=== PATIENT | female | born 1980 | race Caucasian/White ===

== ENCOUNTER 2025-01-29 21:19 | Emergency (ER) | payer SELFPAY ==
[2025-01-29 21:20] VITALS: PULSE 82; RESP 18; TEMP 36.1; O2SAT 98; BMI 27.7
--- NOTE | 2025-01-29 22:14 | EKG12_ITS ---
Test Reason : MENTAL HEALTH Blood Pressure : */* mmHG Vent. Rate : 74 BPM Atrial Rate : 74 BPM P-R Int : 118 ms QRS Dur : 76 ms QT Int : 402 ms P-R-T Axes : 67 18 31 degrees QTcB Int : 446 ms Normal sinus rhythm with sinus arrhythmia Normal ECG No previous ECGs available Confirmed by CRESCENCIO DARDEN, MERRILL ([id number]), assistant editor MICHELLE HAIR ([id number]) on 01/31/2025 9:30:55 AM Referred By: Confirmed By: MERRILL PRATHER MD
--- NOTE | 2025-01-29 22:15 | EX.ED.VIS.PS ---
HPI HPI - Psych History of Present Illness Chief Complaint: Mental Health Informant: patient and family Narrative Narrative: Patient is a 44-year-old female with history of heavy alcohol use, prior psychiatric admission (daughter Thinks she has a diagnosis of schizoaffective disorder) presenting for erratic behavior. Patient was in [place] but apparently drove down to her [facility] and [facility] today which is very unusual for her. She has had spiraling thoughts throughout the day and has been making much sense. She has had intermittent paranoia. She is not been sleeping. Patient also stopped drinking and smoking cold turkey on Tuesday, 2 days ago. Daughter is quite concerned about her and brought her in for further evaluation. Patient denies any HI or SI. She denies any injuries or physical complaints. She asked if she is going to today or if she is ever going home. She has a hard time answering a lot of questions and staying on track when I speak with her. PFSH PFSH Medical History unable to obtain Home Medications ?Medication ?Instructions ?Recorded ?Last Taken ?Type lorazepam 0.5 mg tablet (Ativan) 0.5 mg PO QHS PRN anxiety #5 tabs 01/29/25 Unknown Rx Allergy/AdvReac Type Severity Reaction Status Date / Time No Known Allergies Allergy Verified 01/29/25 21:20 Social History Smoking Status: Never smoker ROS ROS ED Constitutional Constitutional ED: Denies chills or fever(s) Eyes Eyes: Denies blurry vision Cardiovascular Cardiovascular: Denies chest pain Respiratory/Chest Respiratory/Chest: Denies dyspnea Gastrointestinal Gastrointestinal: Denies nausea or vomiting Neurologic Neurologic: Denies headache(s) Psychiatric Psychiatric: Reports anxiety and other Details: Difficulty sleeping, trouble concentrating ; Denies suicidal ideation or suicidal thoughts EXAM Physical Exam Const Vital Signs: 01/29/25 21:20 01/29/25 22:19 Temperature 96.9 F L Temperature Source Temporal Pulse Rate 82 Respiratory Rate 18 Blood Pressure 157/79 H Blood Pressure Mean 105 Pulse Ox 98 Oxygen Delivery Method Room Air Positive well nourished and well developed General Appearance ED: well developed HEENT HEENT Narrative: Mildly dry mucosal membranes Eyes PERRL and EOMs intact bilaterally Neck supple Resp normal respiratory effort and clear to auscultation bilaterally Cardio Rate: regular rate Rhythm: regular rhythm GI non-tender and non-distended Extremity normal to inspection Neuro CN's II-XII intact bilaterally Neuro Narrative: Moving all extremities. No focal deficits appreciated. No tremor. Sensorium / Orientation: alert, oriented to person and oriented to place Motor Exam: muscle tone normal throughout Psych Psych Narrative: Patient seems internally stimulated Appearance: grossly normal Attitude: bizarre Activity / Motor Behavior: appropriate eye contact Speech: rapid and pressured Mood & Affect: anxious Thought Process: illogical Thought Content: No suicidality, No homicidality and No hallucination(s) Attention / Concentration: attention grossly impaired and concentration grossly impaired Memory / Cognition: memory grossly intact and cognition grossly intact Insight: poor Judgement: poor Skin Rashes: no rashes MDM MDM MDM Narrative Medical decision making narrative: Patient evaluated for increased agitation, anxiety and paranoia. Patient appears to be acutely manic internally stimulated. I do not think she has capacity to take care of herself or make medical decisions at this time. Will place a pink slip. Differential includes DTs, acute psychosis, electrolyte derangement and encephalopathy. Will obtain medical clearance. Patient is not currently tachycardic. Will check a blood pressure. Is given IV Ativan for hyperactive features. Patient valuated by the counseling center. He spoke with the patient and family (her daughter). At this time she is not an imminent threat to herself or others. Has no HI or SI. They feel comfortable safety plan. I spoke with the patient again. Discussed that I could admit her for acute alcohol detox. Is not clear if her symptoms could be associated DTs. However patient does not have tremor, tachycardia or significant hypertension more consistent with alcohol withdrawal. She states she only drinks a bottle of wine a day. She has actually seem a bit more lucid at this time. She seems to be demonstrating capacity at this time. Will resend the pink slip. Patient is encouraged to return the emergency room should she have any worsening psychiatric symptoms. Patient and family counseled that if she has progression or worsening symptoms she needs to return to the emergency room. Counseled on signs of DTs such as seizures and sweating. They verbalized agreement understands plan. Patient discharged home in stable condition Spoke with patient with her siblings. Patient does seem more insightful. She was recalling things and answering questions appropriately. Seems less internally stimulated. This is more of an acute mental break associated with her recent stressors of breaking up with a long-term significant other and stopping drinking. Again encouraged to return to the emergency room should things progress. Family feels very comfortable with this plan. In addition she will be going back to her house in [facility]. Will send a prescription for a short course of Ativan to help with sleep. Daughter states that she feels comfortable administering the medication. Counseled on the risk of abuse with this. Lab Data Attestation: I reviewed the patient's lab results. Labs: Laboratory Results - last 24 hr 01/29/25 22:35 WBC 10.1 RBC 4.10 L Hgb 13.9 Hct 38.8 MCV 94.6 MCH 33.9 H MCHC 35.8 RDW Std Deviation 42.8 RDW Coeff of [place] 12.3 Plt Count 302 MPV 10.0 Immature Gran % (Auto) 0.300 Neut % (Auto) 74.4 H Lymph % (Auto) 16.4 L [place] % (Auto) 8.4 Eos % (Auto) 0.1 Baso % (Auto) 0.4 Absolute Neuts (auto) 7.5 Absolute Lymphs (auto) 1.66 Nucleated RBC % 0 Sodium 139 Potassium 3.7 Chloride 101 Carbon Dioxide 21.1 Anion Gap 17 H BUN 5 Creatinine 0.83 Estim Creat Clear Calc 76.34 Est GFR (MDRD) Non-Af 90 BUN/Creatinine Ratio 5.7 L Glucose 111 H Calcium 9.8 Total Bilirubin 0.59 AST 40 H ALT 40 H Alkaline Phosphatase 52 Total Protein 7.2 Albumin 4.7 Globulin 2.5 Albumin/Globulin Ratio 1.9 Serum , Qual NEGATIVE Ethyl Alcohol < 10.1 Rhythm Strip Rhythm Strip: Sinus Rhythm Rate: 74 Ectopy: None EKG Initial EKG: Attestation: I personally reviewed and interpreted this EKG as follows: Interpretation: Sinus Rhythm Comments: Normal sinus rhythm at a rate of 74 bpm with sinus arrhythmia Normal axis Normal intervals Normal ST segments Management Discussion w/another healthcare provider: Behavioral health (Would like to have her follow-up outpatient and contract for safety) Discharge Plan Triage Chief Complaint: Mental Health ED Provider: Tiana Funes Dx/Rx/DC Orders Clinical Impression: Hallucination, visual, Alcohol abuse, daily use Instructions: ED Withdrawal Alcohol, ED Psychosis Prescriptions: New lorazepam [Ativan] 0.5 mg tablet 0.5 mg PO QHS PRN (Reason: anxiety) Qty: 5 0RF Primary Care Provider: Care Physician,No Primary Referrals: Counseling,Center [Group of Physicians] - Care Physician,No Primary [Primary Care Provider] - Activity Restrictions/Additional Instructions: Please call the counseling center for outpatient counseling services. If you have worsening psychiatric symptoms please return to the emergency room. If you or your family no longer feel that you can be safe at home please return the emergency room. Watch for signs of alcohol withdrawal including sweating, elevated heart rate and seizure activity. If these develop please return to the emergency room as well or call 911. Print Language: Afghan Disposition Disposition: Home, Self Care
[2025-01-29 22:19] VITALS: BP 157/79
[2025-01-29 22:42] LABS: Hematocrit 38.8 % (37-47); Hemoglobin 13.9 g/dL (12.0-15.0); Immature Granulocytes Count 0.030 X10^3/uL (0.0-0.0); Mean Corp Hgb Conc 35.8 g/dL (32-36); Mean Corpuscular Volume 94.6 fL (81-99); Mean Platelet Vol. 10.0 fl (6.2-12.0); NRBC Flagged by Analyzer 0 % (0-5); Platelet Count 302 K/mm3 (150-450); RBC Distribution Width CV 12.3 % (11.6-14.6); RBC Distribution Width SD 42.8 fl (35.1-43.9); Red Blood Count 4.10 M/mm3 (4.2-5.4); White Blood Count 10.1 K/mm3 (4.4-11.0)
[2025-01-29 22:50] LABS: Internal QC Validated? YES +Cl - CLEAR BKGD; Pregnancy, Serum, hCG Quali. NEGATIVE Negative; Record Kit Lot#, Serum Preg. 0000962302
[2025-01-29 23:00] VITALS: BP 134/74; PULSE 78; RESP 14; O2SAT 98
[2025-01-29 23:14] LABS: Alcohol, Blood (Medical)-Serum < 10.1 mg/dL (<=10.0)
[2025-01-29 23:15] LABS: AST(SGOT) 40 U/L (<=31); Alanine Aminotransfer ALT/SGPT 40 U/L (<=34); Albumin, Serum 4.7 g/dL (3.5-5.0); Alkaline Phosphatase 52 U/L (35-104); Anion Gap 17 (5-15); BUN 5 mg/dL (4-19); BUN/Creat Ratio 5.7 RATIO (10-20); Calcium,Total 9.8 mg/dL (7.6-11.0); Carbon Dioxide 21.1 mmol/L (21.0-32.0); Chloride 101 mmol/L (98-108); Estimated Creatinine Clearance 76.34 ml/min (50-250); Globulin 2.5 g/dL (2.2-4.2); Glucose 111 mg/dL (70-99); Potassium 3.7 mmol/L (3.3-5.1)
[2025-01-29] MEDS: Lorazepam 2 MG/ML WCH Syringe 1 MG IV (23:43)
[2025-01-30] VITALS: BP 132/71; PULSE 78; RESP 14; TEMP 36.6; O2SAT 99
[2025-01-30 00:20] LABS: Barbiturate Urine NEGATIVE (< 200 ng/mL); Benzodiazepine Urine NEGATIVE (< 200 ng/mL); PCP Urine NEGATIVE (< 25 ng/mL); THC Urine NEGATIVE (< 50 ng/mL)
== END 2025-01-30 00:23 | disposition home or self-care (01) ==
PROVIDERS: Emergency Provider Emergency Medicine; Visit Provider Emergency Medicine
DX: R44.1 Visual hallucinations (principal); F10.10 Alcohol abuse, uncomplicated
CPT/HCPCS: 80053; 80307; 82077; 84443; 84703; 85025; 93005; 96374; 99283; A4216